=== PATIENT | female | born 1975 | race Caucasian/White ===

== ENCOUNTER 2024-06-17 12:43 | Emergency (ER) | payer MEDICAID, MEDICARE, SELFPAY ==
[2024-06-17 12:47] VITALS: BP 161/98; RESP 20; TEMP 36.8; BMI 27.6
--- NOTE | 2024-06-17 12:54 | XRR_ITS ---
PROCEDURE INFORMATION: Exam: XR Chest Exam date and time: 06/17/2024 1:05 PM Age: 49 years old Clinical indication: Pain; Angina pectoris; Additional info: Cp TECHNIQUE: Imaging protocol: Radiologic exam of the chest. Views: 1 view. COMPARISON: No relevant prior studies available. FINDINGS: Lungs: Unremarkable. No consolidation. Pleural spaces: Unremarkable. No pleural effusion. No pneumothorax. Heart/Mediastinum: Unremarkable. No cardiomegaly. Bones/joints: Unremarkable. XR/XR chest 1V portable [id number] IMPRESSION: No acute findings.
--- NOTE | 2024-06-17 12:54 | CT_ITS ---
WS: [id number] CT HEAD NONCONTRAST HISTORY: weakness TECHNIQUE: Contiguous axial imaging performed through the brain. Bone and soft tissue windows. Sagitt al and coronal reformats reviewed. All CT scans at [facility] use at least one of these dose optimization techniques: automated exposure control; mA and/or kV adjustment per patient size (includ es targeted exams where dose is matched to clinical indication); or iterative reconstruction. DLP: 1082.28 mGy.cm COMPARISON: None available. Cochlear implant resulting in significant artifact through the RIGHT brain. No acute intracranial hemorrhage, midline shift or mass effect. No significant atrophy or prior infarct. Ventricles: Normal size with no hydrocephalus. Paranasal sinuses: As visualized are clear. Mastoid air cells: Well pneumatized. Calvarium and scalp: Skull is intact with no soft tissue edema or swelling. Small amount of cerumen in the RIGHT external auditory canal. CT/CT head wo con* [id number] IMPRESSION: 1. No acute intracranial hemorrhage or edema. 2. Portions of the RIGHT brain are being obscured by artifact from the patient 's cochlear implant. 3. No hydrocephalus.
--- NOTE | 2024-06-17 12:58 | ECG_ITS ---
[facility] Test Date: 2024-06-17 Pat Name: salvatore carpio Department: Room: Gender: Female Associate Web Developer: : 1975 Requested By: Aleshia Flores Order Number: [id number] Gregorio MD: Nelsy Camejo M.D. Measurements Intervals [place] Rate: 65 P: 61 CT: 134 QRS: 10 QRSD: 77 T: 55 QT: 398 QTc: 414 Interpretive Statements SINUS RHYTHM NONSPECIFIC T-WAVE ABNORMALITY No previous ECG available for comparison Electronically Signed On 06-18-2024 01:06:40 CDT by Nelsy Camejo M.D. [email or web address]
--- NOTE | 2024-06-17 13:02 | ED_ITS ---
HPI - Neuro Symptoms/Deficit 2 General: Chief Complaint: Neuro Symptoms/Deficit Stated Complaint: stork like symptoms Time Seen by Provider: 06/17/24 12:50 Source: patient Mode of arrival: ambulatory Limitations: no limitations History of Present Illness: 49-year-old female states that for the l ast week she has been having some fatigue states she has had some dizziness along with headaches chest pain and cough. States she is concerned she may have had a stroke due to her weakness she denies any focal one-sided weakness. States she has had some drooling she states on the right side of her mouth but did not notice any facial droop denies any changes of vision states that her symptoms have improved currently she denies any chest pain today or headache but states she want to get checked out. Associated symptoms: Reports chest pain and headache(s); Deny nausea or vomiting Related Data Home Medications Medication Instructions Recorded Confirmed cider 1 tab PO DAILY 06/17/24 06/17/24 rrpkgjj-Ws-wwwprziptufdpzzm-tea 500 mg-100 mcg-300 mg-60 mg tab (Apple Cider Vinegar Plus) clopidogrel 75 mg tablet 75 mg PO DAILY 06/17/24 06/17/24 ranolazine 500 mg tablet,extended 500 mg PO Q12H 06/17/24 06/17/24 release,12 hr simvastatin 20 mg tablet 20 mg PO QPM 06/17/24 06/17/24 spironolactone 25 mg tablet 25 mg PO DAILY 06/17/24 06/17/24 Review of Systems 2 Const: Reports: fatigue; Denies: fever(s), chills, body aches or change in appetite Eyes: Denies: blurry vision or eye discomfort ENMT: Denies: throat pain or dental pain Card: Reports: chest pain Resp: Reports: non-productive cough; Denies: dyspnea GI: Denies: abdominal pain, nausea, vomiting or diarrhea : Denies: dysuria Musc: Denies: neck pain or back pain Skin/Breast: Denies: rash Neuro: Reports: headache(s) NIH stroke score 2 NIHSS: Level Of Consciousness - 1a: 0 Level Of Consciousness Questions - 1b: Both Correct Level Of Consciousness Commands - 1c: Both Correct Best Gaze - 2: Normal Visual Jewell - 3: No Visual Loss Facial Palsy - 4: N ormal Motor Arm Right - 5: No Drift Motor Arm Left - 5: No Drift Motor Leg Right - 6: No Drift Motor Leg Left - 6: No Drift Limb Ataxia - 7: A bsent Sensory - 8: Normal Best Language - 9: No Aphasia Dysarthia - 10: Normal Extinction And Inattention - 11: 0 Score: Total Score: 0 Physical Exam 2 Const: COMMON NORMALS: no acute distress, patient oriented x3 and healthy appearing HENMT: COMMON NORMALS: normocephalic and atraumatic HEAD & SCALP: n ormocephalic and atraumatic Eye: COMMON NORMALS: Equal, round and reactive pupils present and EOMs intact bilaterally PUPIL: Yes Equal, round and reactive pupils present Neck/C-Spine: COMMON NORMALS: full ROM and supple Chest: COMMONS NORMALS: normal inspection of the chest and normal palpation of entire chest wall Resp: COMMON NORMALS: normal respiratory effort, No retractions, No use of accessory muscles and clear to auscultation bilaterally AUSCULTATION: clear to auscultation bilaterally Cardio: COMMON NORMALS: regular rate, regular rhythm and No murmurs present (Cardio) RATE: regular rate RHYTHM: regular rhythm GI: COMMON NORMALS: Normal to inspection, nondistended, normoactive bowel sounds present, Soft to palpation, non-tender and no masses PALPATION: Yes Soft to palpation Extremity: COMMON NORMALS: normal to inspection and full ROM Neuro: COMMON NORMALS: patient oriented x3, moves all extremities and no focal motor deficits Psych: COMMON NORMALS: mental status grossly normal, Normal thought process present and cooperative THOUGHT PROCESS: Normal thought process present Skin: COMMON NORMALS: no rashes or lesions noted and no wounds GENERAL SKIN EXAM: no rashes or lesions noted Course 2 Vital Signs: Vital signs: Vital Signs Temperature 98.3 F 06/17/24 12:47 Pulse Rate 73 06/17/24 13:33 Respiratory Rate 14 06/17/24 13:33 Blood Pressure 139/85 06/17/24 13:33 Pulse Oximetry 96 06/17/24 13:33 Oxygen Delivery Me thod Room Air 06/17/24 13:33 MDM - Neuro Symptoms/Deficit Medical Decision Making Patient presents here with generalized weakness along chest pains been going on for a week her symptoms since resolved she been well-appearing here she has no signs of acute stroke blood work including troponin and head CT are normal she has no signs of ACS or pulmonary embolism she stable for discharge she is follow-up with PCP and return if worsening. Medical Records I reviewed the patient's medical records. Lab Data I reviewed the patient's lab results. 06/17/24 12:58 06/17/24 12:58 Radiology Impressions Chest X-Ray 06/17/24 12:54 IMPRESSION: No acute findings. Head CT 06/17/24 12:54 IMPRESSION: 1. No acute intracranial hemorrhage or edema. 2. Portions of the RIGHT brain are being obscured by artifact from the patient's cochlear implant. 3. No hydrocephalus. Laboratory Results WBC 9.16 10^3/uL (3.29-11.43) 06/17/24 12:58 RBC 5.47 10^6/uL (3.85-5.65) 06/17/24 12:58 Hgb 17.00 g/dL (11.27-16.99) H 06/17/24 12:58 Hct 50.5 % (36-47) H 06/17/24 12:58 MCV 92.3 fl (85-98) 06/17/24 12:58 MCH 31.1 pg (27-33) 06/17/24 12:58 MCHC 33.7 g/dL (30-55) 06/17/24 12:58 RDW 13.2 % (12.1-15.1) 06/17/24 12:58 Plt Count 204 10^3/cmm (157-399) 06/17/24 12:58 MPV 10.8 fL (7.4-10.4) H 06/17/24 12:58 Neut % (Auto) 48.4 % 06/17/24 12:58 Lymph % (Auto) 42.5 % 06/17/24 12:58 [place] % (Auto) 6.4 % 06/17/24 12:58 Eos % (Auto) 1.5 % 06/17/24 12:58 Baso % (Auto) 0.8 % 06/17/24 12:58 Neut # (Auto) 4.43 10^3/uL (1.8-7.7) 06/17/24 12:58 Lymph # (Auto) 3.9 10^3/uL (0.8-4.8) 06/17/24 12:58 [place] # (Auto) 0.6 10^3/uL (0.2-0.9) 06/17/24 12:58 Eos # (Auto) 0.1 10^3/uL (0.0-0.8) 06/17/24 12:58 Baso # (Auto) 0.1 10^3/uL (0.0-0.1) 06/17/24 12:58 Nucleated RBC % (auto) 0 % 06/17/24 12:58 Nucleated RBCs # 0.0 /100WBC 06/17/24 12:58 PT 12.30 SECONDS (12.1-14.9) 06/17/24 12:58 INR 0.89 (0.8-1.2) 06/17/24 12:58 Sodium 137 mmol/L (136-145) 06/17/24 12:58 Potassium 4.5 mmol/L (3.5-5.1) 06/17/24 12:58 Chloride 102 mmol/L (98-107) 06/17/24 12:58 Carbon Dioxide 24 mmol/L (22-29) 06/17/24 12:58 Anion Gap 15.5 (5-19) 06/17/24 12:58 BUN 8 mg/dL (6-20) 06/17/24 12:58 Creatinine 0.8 mg/dL (0.5-0.9) 06/17/24 12:58 GFR Calculation 75.9 mL/min (90-130) L 06/17/24 12:58 Glucose 129 mg/dL (65-115) H 06/17/24 12:58 POC Glucose 127 mg/dL (70-110) H 06/17/24 12:56 Calculated Osmolality 284 mOsm/kg (285-295) L 06/17/24 12:58 Calcium 9.2 mg/dL (8.5-10.5) 06/17/24 12:58 Total Bilirubin 0.3 mg/dL (0.15-1.2) 06/17/24 12:58 AST 15 U/L (0-32) 06/17/24 12:58 ALT 9 U/L (0-33) 06/17/24 12:58 Alkaline Phosphatase 90 U/L (35-105) 06/17/24 12:58 Troponin T Baseline < 6 ng/L (0-10) 06/17/24 12:58 Total Protein 7.3 g/dL (6.6-8.7) 06/17/24 12:58 Albumin 4.6 g/dL (3.5-5.2) 06/17/24 12:58 Globulin 2.7 g/dL (1.3-4.6) 06/17/24 12:58 Coronavirus (PCR) Negative (Negative) 06/17/24 13:04 Influenza A (PCR) Negative (Negative) 06/17/24 13:04 Influenza Type B (PCR) Negative (Negative) 06/17/24 13:04 RSV (PCR) Negative (Negative) 06/17/24 13:04 All radiology interpretation(s) finalized by discharge EKG Data EKG 1: I personally reviewed and interpreted this EKG as follows: EKG interpretation date: 06/17/24 EKG interpretation time: 12:58 Interpretation: nsr hr [address] elevation qrs 77 qtc 409 Discharge Plan Discharge Patient Disposition: Home Clinical Impression: Generalized weakness, Chest pain Condition: Stable Prescriptions: No Action clopidogrel 75 mg Tablet 75 mg PO DAILY spironolactone 25 mg Tablet 25 mg PO DAILY simvastatin 20 mg Tablet 20 mg PO QPM Apple Cider Vinegar Plus [phone] qu-jch-lk-mg Tablet 1 tab PO DAILY ranolazine 500 mg Tablet Extended Release 12 Hr 500 mg PO Q12H Discharge Orders: Discharge ED (Routine); Ordered 06/17/24 Ordered By: Aleshia Flores Discharge Diet: Advance as tolerated Discharge Activity: Resume usual activity Patient Instructions: Chest Pain (ED), Weakness (Generalized) Coding Level of Care Code ED Certified Respiratory Therapist for Imelda Wells
[2024-06-17 13:03] LABS: Glucose Point of Care 127 mg/dL (70-110)
[2024-06-17 13:20] LABS: Basophils # 0.1 10^3/uL (0.0-0.1); Basophils % 0.8 %; Eosinophils # 0.1 10^3/uL (0.0-0.8); Eosinophils % 1.5 %; Hematocrit 50.5 % (36-47); Lymphocytes # 3.9 10^3/uL (0.8-4.8); Lymphocytes % 42.5 %; Mean Corpuscular HGB Conc 33.7 g/dL (30-55); Mean Corpuscular Hemoglobin 31.1 pg (27-33); Mean Corpuscular Volume 92.3 fl (85-98); Mean Platelet Volume 10.8 fL (7.4-10.4); Monocytes # 0.6 10^3/uL (0.2-0.9); Monocytes % 6.4 %; Neutrophils # 4.43 10^3/uL (1.8-7.7); Neutrophils % 48.4 %; Nucleated Red Blood Cells % 0 %; Platelet Count 204 10^3/cmm (157-399); Red Blood Count 5.47 10^6/uL (3.85-5.65); Red Cell Distribution Width 13.2 % (12.1-15.1); White Blood Count 9.16 10^3/uL (3.29-11.43)
[2024-06-17 13:25] LABS: INR 0.89 (0.8-1.2)
[2024-06-17 13:29] LABS: Alanine Aminotransferase 9 U/L (0-33); Albumin Level 4.6 g/dL (3.5-5.2); Alkaline Phosphatase 90 U/L (35-105); Aspartate Amino Transferase 15 U/L (0-32); Blood Urea Nitrogen 8 mg/dL (6-20); Calcium 9.2 mg/dL (8.5-10.5); Carbon Dioxide 24 mmol/L (22-29); Chloride 102 mmol/L (98-107); Creatinine Clr Calc Pharmacy 79.3475; Globulin 2.7 g/dL (1.3-4.6); Glomerular Filtration Rate 75.9 mL/min (90-130); Glucose 129 mg/dL (65-115); Osmolality Calculated 284 mOsm/kg (285-295); Sodium 137 mmol/L (136-145); Total Bilirubin 0.3 mg/dL (0.15-1.2); Total Protein 7.3 g/dL (6.6-8.7); Troponin(5th) Baseline < 6 ng/L (0-10)
[2024-06-17 13:31] LABS: Anion Gap 15.5 (5-19); Potassium 4.5 mmol/L (3.5-5.1)
[2024-06-17 13:33] VITALS: BP 139/85; PULSE 73; RESP 14; O2SAT 96
[2024-06-17 13:48] LABS: Covid PCR NEGATIVE (Negative); Influenza A NEGATIVE (Negative); Influenza B NEGATIVE (Negative); Respiratory Syncytial Virus Ce NEGATIVE (Negative)
[2024-06-17 14:35] VITALS: BP 124/62; PULSE 60; RESP 16; O2SAT 96
== END 2024-06-17 14:37 | disposition home or self-care (01) ==
PROVIDERS: Emergency Provider Emergency Medicine
DX: R53.1 Weakness (principal); R07.9 Chest pain, unspecified; Z79.02 Long term (current) use of antithrombotics/antiplatelets; Z11.52 Encounter for screening for COVID-19
CPT/HCPCS: 0241U; 36416; 70450; 71045; 80053; 82962; 84484; 85025; 85610; 93005; 99285

== ENCOUNTER 2024-08-16 21:43 | Emergency (ER) | payer MEDICARE, SELFPAY ==
--- NOTE | 2024-08-16 21:49 | XRR_ITS ---
PROCEDURE INFORMATION: Exam: XR Chest Exam date and time: 08/16/2024 9:57 PM Age: 49 years old Clinical indication: Chest pressure; Patient HX: Chest pain TECHNIQUE: Imaging protocol: Radiologic exam of the chest. Views: 1 view. COMPARISON: CR XR chest 1V portable [id number] 06/17/2024 1:05 PM FINDINGS: Lungs: Unremarkable. No consolidation. Pleural spaces: Unremarkable. No pleural effusion. No pneumothorax. Heart/Mediastinum: Unremarkable. No cardiomegaly. Bones/joints: Unremarkable. XR/XR chest 1V portable [id number] IMPRESSION: No acute findings.
--- NOTE | 2024-08-16 21:49 | ECG_ITS ---
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 Measurements Intervals [place] Rate: 66 P: 55 LA: 147 QRS: 9 QRSD: 84 T: 66 QT: 336 QTc: 353 Interpretive Statements SINUS RHYTHM POSSIBLE LEFT ATRIAL ENLARGEMENT [-0.1mV P-WAVE IN V1/V2] NONSPECIFIC T-WAVE ABNORMALITY Compared to ECG 06/17/2024 12:58:07 No significant changes Electronically Signed On 08-17-2024 22:36:46 CORN HUSKER by Nelsy Camejo M.D. [email or web address]
--- NOTE | 2024-08-16 21:50 | ED_ITS ---
HPI - Chest Pain 2 General: Chief Complaint: Chest Pain Stated Complaint: Chest Pain Time Seen by Provider: 08/16/24 21:44 History of Present Illness: Patient presents to the ER with complaints of left-sided chest pain that radiates up into her neck. She describes as a pinching. It is reproducible pain. Is been going on all day long. Per the patient she has had what sounds like an NSTEMI with 1 stent placed in [place]. She is on Plavix and Ranexa currently. Patient denies any nausea vomiting shortness of breath diaphoresis. 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 Related Data Home Medications Medication Instructions Recorded Confirmed cider 1 tab PO DAILY 06/17/24 06/17/24 nrrmwyp-Pp-qdseuzercuisadxq-tea 500 mg-100 mcg-300 mg-60 mg tab (Apple Cider Vinegar Plus) clopidogrel 75 mg tablet 75 mg PO DAILY 06/17/24 06/17/24 ranolazine 500 mg tablet,extended 500 mg PO Q12H 06/17/24 06/17/24 release,12 hr simvastatin 20 mg tablet 20 mg PO QPM 06/17/24 06/17/24 spironolactone 25 mg tablet 25 mg PO DAILY 06/17/24 06/17/24 Review of Systems 2 General: Reports: 10 or more systems reviewed and unremarkable except in HPI and below Physical Exam 2 Const: COMMON NORMALS: no acute distress, average body habitus, patient oriented x3, no limitations, healthy appearing, alert and well nourished HENMT: COMMON NORMALS: normocephalic, atraumatic, hearing grossly normal bilaterally, external ears normal, Normal external nose present and moist oral mucous membranes HEAD & SCALP: normocephalic and atraumatic NOSE: Normal external nose present EXTERNAL EAR: Yes external ears normal Neck/C-Spine: COMMON NORMALS: full ROM, no lymphadenopathy, supple, no meningeal signs, no JVD and Thyroid normal THYROID: Thyroid normal Chest: COMMONS NORMALS: normal inspection of the chest and normal palpation of entire chest wall Resp: COMMON NORMALS: normal respiratory effort, No retractions, No use of accessory muscles and clear to auscultation bilaterally AUSCULTATION: clear to auscultation bilaterally Cardio: COMMON NORMALS: no JVD, regular rate, regular rhythm, S1 normal heart sound present, S2 normal heart sound present, No gallops present (Cardio), No clicks present (Cardio), No murmurs present (Cardio) and No rub (Cardio) R ATE: regular rate RHYTHM: regular rhythm HEART SOUNDS: S1 normal heart sound present and S2 normal heart sound present GI: COMMON NORMALS: Normal to inspection, nondistended, normoactive bowel sounds present, Soft to palpation, non-tender, No hepatosplenomegaly present and no masses PALPATION: Yes Soft to palpation and Yes No hepatosplenomegaly present Neuro: COMMON NORMALS: patient oriented x3 SENSORIUM/ORIENTATION: Yes alert MENINGEAL SIGNS: Yes no meningeal signs Course 2 Vital Signs: Vital signs: Vital Signs Temperature 98 F 08/16/24 21:57 Pulse Rate 72 08/17/24 00:41 Respiratory Rate 18 08/16/24 23:49 Blood Pressure 136/78 08/17/24 00:41 Pulse Oximetry 99 08/17/24 00:41 Oxygen Delivery Me thod Room Air 08/16/24 23:49 MDM - Chest Pain Medical Decision Making Patient present with chest pain was worked up last chest pain fashion with serial EKGs, serial enzymes, blood work, chest x-ray, all of which essentially is benign. Patient be discharged home to follow-up with her PCP. Lab Data 08/16/24 21:30 08/16/24 21:30 Radiology Impressions Chest X-Ray 08/16/24 21:49 IMPRESSION: No acute findings. Laboratory Results WBC 9.84 10^3/uL (3.29-11.43) 08/16/24 21:30 RBC 5.49 10^6/uL (3.85-5.65) 08/16/24 21:30 Hgb 16.80 g/dL (11.27-16.99) 08/16/24 21:30 Hct 49.6 % (36-47) H 08/16/24 21:30 MCV 90.3 fl (85-98) 08/16/24 21:30 MCH 30.6 pg (27-33) 08/16/24 21:30 MCHC 33.9 g/dL (30-55) 08/16/24 21:30 RDW 12.5 % (12.1-15.1) 08/16/24 21:30 Plt Count 223 10^3/cmm (157-399) 08/16/24 21: MPV 11.6 fL (7.4-10.4) H 08/16/24 21: Neut % (Auto) 47.2 % 08/16/24 21: Lymph % (Auto) 43.4 % 08/16/24 21:30 [place] % (Auto) 7.1 % 08/16/24 21: Eos % (Auto) 1.5 % 08/16/24 21: Baso % (Auto) 0.6 % 08/16/24 21:30 Neut # (Auto) 4.64 10^3/uL (1.8-7.7) 08/16/24: Lymph # (Auto) 4.3 10^3/uL (0.8-4.8) 08/16/24 21: [place] # (Auto) 0.7 10^3/uL (0.2-0.9) 08/16/24 21: Eos # (Auto) 0.2 10^3/uL (0.0-0.8) 08/16/24 21: Baso # (Auto) 0.1 10^3/uL (0.0-0.1) 08/16/24: Nucleated RBC % (auto) 0 % 08/16/24: Nucleated RBCs # 0.0 /100WBC 08/16/24 21: PT 12.30 SECONDS (12.1-14.9) 08/16/24 21: INR 0.89 (0.8-1.2) 08/16/24 21:30 Sodium 143 mmol/L (136-145) 08/16/24 21:30 Potassium 3.6 mmol/L (3.5-5.1) 08/16/24 21: Chloride 104 mmol/L (98-107) 08/16/24 21: Carbon Dioxide 27 mmol/L (22-29) 08/16/24 21:30 Anion Gap 15.6 (5-19) 08/16/24 21:30 BUN 7 mg/dL (6-20) 08/16/24 21:30 Creatinine 0.8 mg/dL (0.5-0.9) 08/16/24 21:30 GFR Calculation 75.9 mL/min (90-130) L 08/16/24 21:30 Glucose 112 mg/dL (65-115) 08/16/24 21:30 Calculated Osmolality 295 mOsm/kg (285-295) 08/16/24 21:30 Calcium 9.7 mg/dL (8.5-10.5) 08/16/24 21:30 Total Bilirubin 0.3 mg/dL (0.15-1.2) 08/16/24 21:30 AST 18 U/L (0-32) 08/16/24 21:30 ALT 13 U/L (0-33) 08/16/24 21:30 Alkaline Phosphatase 94 U/L (35-105) 08/16/24 21:30 Troponin T Baseline < 6 ng/L (0-10) 08/16/24 21:30 Troponin T 120 Minute 6.00 ng/L (0-10) 08/16/24 23:35 Delta Troponin T 0.72283 ABS# (0-10) 08/16/24 23:35 Total Protein 7.4 g/dL (6.6-8.7) 08/16/24 21:30 Albumin 4.6 g/dL (3.5-5.2) 08/16/24 21:30 Globulin 2.8 g/dL (1.3-4.6) 08/16/24 21:30 All radiology interpretation(s) finalized by discharge Discharge Plan Discharge Patient Disposition: Home Clinical Impression: Atypical chest pain Condition: Stable Prescriptions: No Action clopidogrel 75 mg Tablet 75 mg PO DAILY spironolactone 25 mg Tablet 25 mg PO DAILY simvastatin 20 mg Tablet 20 mg PO QPM Apple Cider Vinegar Plus [phone] ed-wiw-qc-mg Tablet 1 tab PO DAILY ranolazine 500 mg Tablet Extended Release 12 Hr 500 mg PO Q12H Discharge Orders: Discharge ED (Routine); Ordered 08/17/24 Ordered By: Aayush Taylor Patient Instructions: Noncardiac Chest Pain (ED) Activity Restrictions/Additional Instructions: [facility]. Please realize that you were seen in the emergency department and that we are providing you with an emergency medical screening exam and this may not be a complete and all exclusive of all testing and/or medical workup we may need to determine your element or severity of your illness. It is very important that you follow-up as instructed with your primary care provider or specialist for the additional evaluation and to discuss your medical treatment plan. You may return to the emergency department should you have concerns or if your condition changes or worsens in any way. Coding Level of Care Code ED Health Care Facility Administrator for Imelda Wells
[2024-08-16 21:57] VITALS: BP 140/79; PULSE 67; RESP 18; TEMP 36.6; O2SAT 94; BMI 31.8
[2024-08-16 22:13] LABS: Basophils # 0.1 10^3/uL (0.0-0.1); Basophils % 0.6 %; Eosinophils # 0.2 10^3/uL (0.0-0.8); Eosinophils % 1.5 %; Hematocrit 49.6 % (36-47); Lymphocytes # 4.3 10^3/uL (0.8-4.8); Lymphocytes % 43.4 %; Mean Corpuscular HGB Conc 33.9 g/dL (30-55); Mean Corpuscular Hemoglobin 30.6 pg (27-33); Mean Corpuscular Volume 90.3 fl (85-98); Mean Platelet Volume 11.6 fL (7.4-10.4); Monocytes # 0.7 10^3/uL (0.2-0.9); Monocytes % 7.1 %; Neutrophils # 4.64 10^3/uL (1.8-7.7); Neutrophils % 47.2 %; Nucleated Red Blood Cells % 0 %; Platelet Count 223 10^3/cmm (157-399); Red Blood Count 5.49 10^6/uL (3.85-5.65); Red Cell Distribution Width 12.5 % (12.1-15.1); White Blood Count 9.84 10^3/uL (3.29-11.43)
[2024-08-16 22:18] LABS: INR 0.89 (0.8-1.2)
[2024-08-16 22:23] LABS: Troponin(5th) Baseline < 6 ng/L (0-10)
[2024-08-16 22:26] LABS: Alanine Aminotransferase 13 U/L (0-33); Albumin Level 4.6 g/dL (3.5-5.2); Alkaline Phosphatase 94 U/L (35-105); Anion Gap 15.6 (5-19); Aspartate Amino Transferase 18 U/L (0-32); Blood Urea Nitrogen 7 mg/dL (6-20); Calcium 9.7 mg/dL (8.5-10.5); Carbon Dioxide 27 mmol/L (22-29); Chloride 104 mmol/L (98-107); Creatinine Clr Calc Pharmacy 85.1312; Globulin 2.8 g/dL (1.3-4.6); Glomerular Filtration Rate 75.9 mL/min (90-130); Glucose 112 mg/dL (65-115); Osmolality Calculated 295 mOsm/kg (285-295); Potassium 3.6 mmol/L (3.5-5.1); Sodium 143 mmol/L (136-145); Total Bilirubin 0.3 mg/dL (0.15-1.2); Total Protein 7.4 g/dL (6.6-8.7)
[2024-08-16 22:29] VITALS: BP 163/87; PULSE 65; RESP 17; O2SAT 97
[2024-08-16 23:49] VITALS: BP 145/79; PULSE 60; RESP 18; O2SAT 94
--- NOTE | 2024-08-16 23:49 | ECG_ITS ---
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 Measurements Intervals [place] Rate: 62 P: 58 AL: 144 QRS: 3 QRSD: 72 T: 59 QT: 340 QTc: 347 Interpretive Statements SINUS RHYTHM NONSPECIFIC T-WAVE ABNORMALITY Compared to ECG 08/16/2024 21:50:11 No significant changes Electronically Signed On 08-17-2024 22:43:04 TEACHER DRAMATICS by Nelsy Camejo M.D. [id number]
[2024-08-17 00:03] LABS: Troponin 5 2HR Delta 0.00001 ABS# (0-10)
[2024-08-17 00:41] VITALS: BP 136/78; PULSE 72; O2SAT 99
== END 2024-08-17 00:42 | disposition home or self-care (01) ==
PROVIDERS: Emergency Provider Emergency Medicine
DX: R07.89 Other chest pain (principal); Z79.02 Long term (current) use of antithrombotics/antiplatelets
CPT/HCPCS: 36415; 71045; 80053; 84484; 85025; 85610; 93005; 99285

== ENCOUNTER 2024-10-28 20:11 | Emergency (ER) | payer MEDICARE, MEDICAID, SELFPAY ==
[2024-10-28 20:13] VITALS: BP 128/78; PULSE 97; RESP 20; TEMP 37.6; O2SAT 94; BMI 28.3
--- NOTE | 2024-10-28 20:13 | XRR_ITS ---
PROCEDURE INFORMATION: Exam: XR Chest Exam date and time: 10/28/2024 8:52 PM Age: 49 years old Clinical indication: Chest wall pain; Additional info: Cp TECHNIQUE: Imaging protocol: Radiologic exam of the chest. Views: 1 view. COMPARISON: CR XR chest 1V portable [id number] 08/16/2024 9:57 PM FINDINGS: Lungs: Unremarkable. No consolidation. Pleural spaces: Unremarkable. No pleural effusion. No pneumothorax. Heart/Mediastinum: Unremarkable. No cardiomegaly. Bones/joints: No acute bony abnormalities detected. XR/XR chest 1V portable [id number] IMPRESSION: Negative chest exam.
--- NOTE | 2024-10-28 20:25 | ECG_ITS ---
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1975 Requested By: Aleshia Flores Order Number: [id number] Reading MD: LEXIS SANCHEZ Measurements Intervals [place] Rate: 102 P: 35 MA: 104 QRS: 8 QRSD: 81 T: -4 QT: 372 QTc: 485 Interpretive Statements SINUS TACHYCARDIA WITH SHORT MA INTERVAL VOLTAGE CRITERIA FOR LVH [MEETS CRITERIA IN ONE OF: R(aVL), S(V1), R(V5), R(V5/V6)+S(V1)] NONSPECIFIC T-WAVE ABNORMALITY Compared to ECG 08/17/2024 00:13:56 Short MA interval now present Left ventricular hypertrophy now present Sinus rhythm no longer present T-wave abnormality still present Electronically Signed On 10-28-2024 23:30:37 PHONE CIRCUIT OPERATOR by LEXIS SANCHEZ [email or web address]
[2024-10-28 21:09] LABS: Influenza A POSITIVE (Negative); Influenza B NEGATIVE (Negative); Respiratory Syncytial Virus Ce NEGATIVE (Negative); SARS-CoV-2 PCR NEGATIVE (Negative)
[2024-10-28 21:23] LABS: Alanine Aminotransferase 14 U/L (0-33); Albumin Level 4.2 g/dL (3.5-5.2); Alkaline Phosphatase 78 U/L (35-105); Anion Gap 19.3 (5-19); Aspartate Amino Transferase 22 U/L (0-32); Blood Urea Nitrogen 12 mg/dL (6-20); Calcium 8.8 mg/dL (8.5-10.5); Carbon Dioxide 24 mmol/L (22-29); Chloride 96 mmol/L (98-107); Creatinine Clr Calc Pharmacy 71.3882; Globulin 3.3 g/dL (1.3-4.6); Glomerular Filtration Rate 66.3 mL/min (90-130); Glucose 163 mg/dL (65-115); Lipase 75 U/L (13-60); Osmolality Calculated 285 mOsm/kg (285-295); Potassium 3.3 mmol/L (3.5-5.1); Sodium 136 mmol/L (136-145); Total Bilirubin 0.4 mg/dL (0.15-1.2); Total Protein 7.5 g/dL (6.6-8.7)
[2024-10-28 21:28] LABS: Basophils # 0.1 10^3/uL (0.0-0.1); Basophils % 0.8 %; Eosinophils % 0.3 %; Hematocrit 47.8 % (36-47); Lymphocytes # 1.9 10^3/uL (0.8-4.8); Lymphocytes % 24.7 %; Mean Corpuscular HGB Conc 34.3 g/dL (30-55); Mean Corpuscular Hemoglobin 30.1 pg (27-33); Mean Corpuscular Volume 87.7 fl (85-98); Mean Platelet Volume 11.8 fL (7.4-10.4); Monocytes # 0.9 10^3/uL (0.2-0.9); Neutrophils # 4.84 10^3/uL (1.8-7.7); Neutrophils % 62.4 %; Nucleated Red Blood Cells % 0 %; Platelet Count 169 10^3/cmm (157-399); Red Blood Count 5.45 10^6/uL (3.85-5.65); Troponin(5th) Baseline 18 ng/L (0-10); White Blood Count 7.74 10^3/uL (3.29-11.43)
[2024-10-28 21:51] VITALS: BP 140/76; PULSE 88; O2SAT 93
[2024-10-28 22:00] VITALS: BP 135/83; PULSE 83; O2SAT 95
--- NOTE | 2024-10-28 22:04 | W.ED.URI ---
HPI - URI/Sore Throat General: Chief Complaint: Upper Respiratory Infection Stated Complaint: cought chest hurts when breathing Time Seen by Provider: 10/28/24 21:08 History of Present Illness: This is a 49-year-old deaf lady who presents emergency room with upper respiratory complaints. She has been sick for about 4 days. She has had a cough. Sore throat. Congestion. Some difficulty breathing when lying down. No heart disease. She gets about 99 7 on presentation Related Data Home Medications ?Medication ?Instructions ?Recorded ?Confirmed cider 1 tab PO DAILY 06/17/24 06/17/24 ucbjutp-Xa-ffsjtwrgvwgqlxnq-tea 500 mg-100 mcg-300 mg-60 mg tab (Apple Cider Vinegar Plus) clopidogrel 75 mg tablet 75 mg PO DAILY 06/17/24 06/17/24 ranolazine 500 mg tablet,extended 500 mg PO Q12H 06/17/24 06/17/24 release,12 hr simvastatin 20 mg tablet 20 mg PO QPM 06/17/24 06/17/24 spironolactone 25 mg tablet 25 mg PO DAILY 06/17/24 06/17/24 Previous Rx's ?Medication ?Instructions ?Recorded dexamethasone 6 mg tablet 6 mg PO DAILY 5 days #5 tabs 10/28/24 diclofenac sodium 50 mg 50 mg PO BID PRN pain #14 tabs 10/28/24 tablet,delayed release Allergies Allergy/AdvReac Type Severity Reaction Status Date / Time codeine Allergy Unknown Verified 10/28/24 20:22 Review of Systems Narrative: Constitutional symptoms: Negative except as documented in HPI. Skin symptoms: Negative except as documented in HPI. Eye symptoms: Negative except as documented in HPI. ENMT symptoms: Negative except as documented in HPI. Respiratory symptoms: Negative except as documented in HPI. Cardiovascular symptoms: Negative except as documented in HPI. Gastrointestinal symptoms: Negative except as documented in HPI. Genitourinary symptoms: Negative except as documented in HPI. Musculoskeletal symptoms: Negative except as documented in HPI. Neurologic symptoms: Negative except as documented in HPI. Psychiatric symptoms: Negative except as documented in HPI. Endocrine symptoms: Negative except as documented in HPI. Physical Exam Narrative: EXAM NARRATIVE: General: Alert, no acute distress. Skin: Warm, dry. Head: Normocephalic, atraumatic. Neck: Supple, trachea midline. Eye: Extraocular movements are intact. Ears, nose, mouth and throat: mucosa moist. Cardiovascular: Regular, Normal peripheral perfusion. Respiratory: Lungs are clear to auscultation, respirations are non-labored, breath sounds are equal, Symmetrical chest wall expansion. Gastrointestinal: Soft, Nontender, Non distended Musculoskeletal: Normal ROM, no deformity. Neurological: Alert and oriented, No focal neurological deficit observed. Psychiatric: Cooperative, appropriate mood & affect. Course Vital Signs: Vital signs: Vital Signs Temperature 99.7 F H 10/28/24 20:13 Pulse Rate 83 10/28/24 22:00 Respiratory Rate 20 H 10/28/24 20:13 Blood Pressure 135/83 10/28/24 22:00 Pulse Oximetry 95 10/28/24 22:00 Oxygen Delivery Me thod Room Air 10/28/24 22:00 MDM - URI/Sore Throat Medical Decision Making Differential diagnosis for patient with shortness of breath includes but is not limited to and based on the above HPI, review of systems and physical exam: Pneumonia. Bronchitis. Asthma or COPD with acute exacerbation. Acute coronary syndrome / MT. Pulmonary embolism. Anxiety. Congestive heart failure. Viral infections including influenza and Covid-19. Atrial fibrillation. Anxiety. Pleural effusion. Pneumothorax. Orders placed to evaluate differential diagnosis based on the above differential, HPI and physical exam Chest x-ray: No acute process. No infiltrate. No pneumothorax. This was reviewed and interpreted by myself the emergency room physician. I also reviewed the radiology report. Lab Review: Laboratory results were reviewed and interpreted by myself the emergency room physician. Patient has influenza A. Otherwise labs are unremarkable. No leukocytosis. No anemia. No renal failure I reviewed the patient's medical record. Reexamination: Patient remained stable. No increased work of breathing. No altered mental status. No focal motor deficits. Assessment and plan: Influenza A ?IM Decadron in the emergency room. - Discharged home - Discussed plan with patient. Answered any questions. - Evaluation and treatment of this problem were appropriate in the emergency setting. Lab Data 10/28/24 20:44 10/28/24 20:44 Radiology Impressions Chest X-Ray 10/28/24 20:13 IMPRESSION: Negative chest exam. Laboratory Results WBC 7.74 10^3/uL (3.29-11.43) 10/28/24 20:44 RBC 5.45 10^6/uL (3.85-5.65) 10/28/24 20:44 Hgb 16.40 g/dL (11.27-16.99) 10/28/24 20:44 Hct 47.8 % (36-47) H 10/28/24 20:44 MCV 87.7 fl (85-98) 10/28/24 20:44 MCH 30.1 pg (27-33) 10/28/24 20:44 MCHC 34.3 g/dL (30-55) 10/28/24 20:44 RDW 13.0 % (12.1-15.1) 10/28/24 20:44 Plt Count 169 10^3/cmm (157-399) 10/28/24:44 MPV 11.8 fL (7.4-10.4) H 10/28/24 20:44 Neut % (Auto) 62.4 % 10/28/24 20:44 Lymph % (Auto) 24.7 % 10/28/24:44 Bent % (Auto) 11.0 % 10/28/24 20:44 Eos % (Auto) 0.3 % 10/28/24 20:44 Baso % (Auto) 0.8 % 10/28/24 20:44 Neut # (Auto) 4.84 10^3/uL (1.8-7.7) 10/28/24 20:44 Lymph # (Auto) 1.9 10^3/uL (0.8-4.8) 10/28/24 20:44 Bent # (Auto) 0.9 10^3/uL (0.2-0.9) 10/28/24 20:44 Eos # (Auto) 0.0 10^3/uL (0.0-0.8) 10/28/24 20:44 Baso # (Auto) 0.1 10^3/uL (0.0-0.1) 10/28/24:44 Nucleated RBC % (auto) 0 % 10/28/24 20:44 Nucleated RBCs # 0.0 /100WBC 10/28/24 20:44 Sodium 136 mmol/L (136-145) 10/28/24 20:44 Potassium 3.3 mmol/L (3.5-5.1) L 10/28/24 20:44 Chloride 96 mmol/L (98-107) L 10/28/24 20:44 Carbon Dioxide 24 mmol/L (22-29) 10/28/24 20:44 Anion Gap 19.3 (5-19) H 10/28/24 20:44 BUN 12 mg/dL (6-20) 10/28/24 20:44 Creatinine 0.9 mg/dL (0.5-0.9) 10/28/24 20:44 GFR Calculation 66.3 mL/min (90-130) L 10/28/24 20:44 Glucose 163 mg/dL (65-115) H 10/28/24 20:44 Calculated Osmolality 285 mOsm/kg (285-295) 10/28/24 20:44 Calcium 8.8 mg/dL (8.5-10.5) 10/28/24 20:44 Total Bilirubin 0.4 mg/dL (0.15-1.2) 10/28/24 20:44 AST 22 U/L (0-32) 10/28/24:44 ALT 14 U/L (0-33) 10/28/24 20:44 Alkaline Phosphatase 78 U/L (35-105) 10/28/24 20:44 Troponin T Baseline 18 ng/L (0-10) H 10/28/24 20:44 Total Protein 7.5 g/dL (6.6-8.7) 10/28/24 20:44 Albumin 4.2 g/dL (3.5-5.2) 10/28/24 20:44 Globulin 3.3 g/dL (1.3-4.6) 10/28/24 20:44 Lipase 75 U/L (13-60) H 10/28/24 20:44 Influenza A (PCR) Positive (Negative) 10/28/24: Influenza Type B (PCR) Negative (Negative) 10/28/24: RSV (PCR) Negative (Negative) 10/28/24: SARS-CoV-2 (PCR) Negative (Negative) 10/28/24: All radiology interpretation(s) finalized by discharge Discharge Plan Discharge Patient Disposition: Home Clinical Impression: Influenza A Condition: Stable Prescriptions: New dexamethasone 6 mg tablet 6 mg PO DAILY 5 Days Qty: 5 0RF diclofenac sodium 50 mg tablet,delayed release (DR/EC) 50 mg PO BID PRN (Reason: pain) Qty: 14 0RF No Action clopidogrel 75 mg Tablet 75 mg PO DAILY spironolactone 25 mg Tablet 25 mg PO DAILY simvastatin 20 mg Tablet 20 mg PO QPM Iwona Cider Oralegar Plus [phone] io-qec-ea-mg Tablet 1 tab PO DAILY ranolazine 500 mg Tablet Extended Release 12 Hr 500 mg PO Q12H Discharge Orders: Discharge ED (Routine); Ordered 10/28/24 Ordered By: Jacki Fuller Discharge Diet: Usual diet Discharge Activity: Increase activity as tolerated Patient Instructions: Influenza (ED), Opioid Safety, Pain Management Activity Restrictions/Additional Instructions: Thank you for choosing [facility] for your healthcare needs today. Please realize this is an emergency room and that we are providing you with a medical screening exam and this may not be complete and all inclusive of all the testing and or work up that you may need to determine your ailment or severity of your illness. You have been screened and evaluated and felt safe for discharge. Health conditions do change or evolve sometimes and as such it is important that you follow up with your Primary Doctor to be re checked, 3-5 days is a general good time frame for follow up. You are always welcome to return to the ED for re assessment if your symptoms are worsening or you have new concerns Print Language: Yi Coding Level of Care Code ED Hired Worker for Imelda Wells
[2024-10-28] MEDS: dexamethasone 10 mg/mL INJ IM (22:20)
[2024-10-28 22:25] VITALS: BP 134/83; PULSE 86; O2SAT 93
== END 2024-10-28 22:25 | disposition home or self-care (01) ==
PROVIDERS: Emergency Medicine; Emergency Provider Emergency Medicine
DX: J10.1 Influenza due to other identified influenza virus with other respiratory manifestations (principal); Z11.52 Encounter for screening for COVID-19; Z79.02 Long term (current) use of antithrombotics/antiplatelets
CPT/HCPCS: 71045; 80053; 83690; 84484; 85025; 87637; 93005; 96372; 99285; J1100

== ENCOUNTER 2024-11-10 12:51 | Emergency (ER) | payer MEDICARE, MEDICAID, SELFPAY ==
[2024-11-10] VITALS (47 sets, daily range): BP systolic 138–186; BP diastolic 84–141; PULSE 74–108; RESP 10–35; TEMP 36.7; O2SAT 93–99
--- NOTE | 2024-11-10 14:47 | XRR_ITS ---
PROCEDURE INFORMATION: Exam: XR Chest Exam date and time: 11/10/2024 2:51 PM Age: 49 years old Clinical indication: Cough and dyspnea; Prior surgery; Surgery date: 6+ months; Surgery type: Stent; Additional info: Dyspnea/cough TECHNIQUE: Imaging protocol: Radiologic exam of the chest. Views: 1 view. COMPARISON: CR (CHEST, ) 10/28/2024 8:52 PM FINDINGS: Lungs: Unremarkable. No consolidation. Pleural spaces: Unremarkable. No pleural effusion. No pneumothorax. Heart/Mediastinum: Unremarkable. No cardiomegaly. Bones/joints: Unremarkable. XR/XR chest 1V portable [id number] IMPRESSION: No acute findings.
--- NOTE | 2024-11-10 14:48 | ECG_ITS ---
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: : 1975 Requested By: Hair Rouse Order Number: [id number] Reading MD: LEXIS SANCHEZ Measurements Intervals [place] Rate: 78 P: 61 HI: 129 QRS: 28 QRSD: 77 T: 203 QT: 383 QTc: 437 Interpretive Statements SINUS RHYTHM ST DEVIATION AND MODERATE T-WAVE ABNORMALITY, CONSIDER LATERAL ISCHEMIA [-0.1+ mV T-WAVE IN I/aVL/V5/V6] ST DEVIATION AND MODERATE T-WAVE ABNORMALITY, CONSIDER INFERIOR ISCHEMIA [-0.1+ mV T-WAVE IN II/aVF] Compared to ECG 10/28/2024 20:25:22 Possible ischemia now present Sinus tachycardia no longer present Short HI interval no longer present Left ventricular hypertrophy no longer present T-wave abnormality still present Electronically Signed On 11-10-2024 22:13:21 CDT by LEXIS SANCHEZ [email or web address]
--- NOTE | 2024-11-10 14:49 | W.ED.GENADLT ---
Documented by User: Hair Estevez DO 11/11/24 06:06 HPI - General Adult General: Chief complaint: Headache Stated complaint: hp,headache,weak, backpain Time Seen by Provider: 11/10/24 14:46 History of Present Illness: 49-year-old female presents to the emergency room with headache neck pain nausea elevated blood pressure. She has a known history of coronary artery disease has had previous angiography with stenting. She has been on multiple medications but she stopped all of her medicines about 5 months ago including ranolazine clopidogrel simvastatin spironolactone. She not previously been seen here. She was able to tell me about her coronary artery disease but does not have any known history that she can relate of kidney disease or diabetes she does smoke regularly. Associated symptoms: Deny chest pain, dyspnea or rash Related Data Home Medications ?Medication ?Instructions ?Recorded ?Confirmed cider 1 tab PO DAILY 06/17/24 11/10/24 rdtlrro-Qm-uctjhoiwniqmssbn-tea 500 mg-100 mcg-300 mg-60 mg tab (Apple Cider Vinegar Plus) clopidogrel 75 mg tablet 75 mg PO DAILY 06/17/24 11/10/24 ranolazine 500 mg tablet,extended 500 mg PO Q12H 06/17/24 11/10/24 release,12 hr simvastatin 20 mg tablet 20 mg PO QPM 06/17/24 11/10/24 spironolactone 25 mg tablet 25 mg PO DAILY 06/17/24 11/10/24 Previous Rx's ?Medication ?Instructions ?Recorded clopidogrel 75 mg tablet (Plavix) 75 mg PO DAILY #30 tabs 11/10/24 ranolazine 500 mg tablet,extended 500 mg PO BID #60 tabs 11/10/24 release,12 hr simvastatin 20 mg tablet 20 mg PO QPM #30 tabs 11/10/24 spironolactone 25 mg tablet 25 mg PO QAM #30 tabs 11/10/24 Allergies Allergy/AdvReac Type Severity Reaction Status Date / Time codeine Allergy Unknown Verified 11/10/24 13:42 Review of Systems Const: Denies: fever(s) or chills Card: Denies: chest pain Resp: Denies: dyspnea GI: Denies: abdominal pain : Denies: dysuria, urinary frequency or urinary urgency Musc: Denies: neck pain or back pain Skin/Breast: Denies: rash PFSH ED PFSH: Medical History Coronary artery disease Surgical History History of coronary angioplasty with insertion of stent Physical Exam Const: GENERAL APPEARANCE: cooperative ORIENTATION/CONSCIOUSNESS: Yes awake, Yes oriented to person, Yes oriented to place and Yes oriented to time HENMT: COMMON NORMALS: normocephalic and atraumatic HEAD & SCALP: normocephalic and atraumatic Resp: COMMON NORMALS: normal respiratory effort, No retractions, No use of accessory muscles and clear to auscultation bilaterally AUSCULTATION: clear to auscultation bilaterally Cardio: COMMON NORMALS: regular rate, regular rhythm and No murmurs present (Cardio) RATE: regular rate RHYTHM: regular rhythm GI: COMMON NORMALS: Soft to palpation and No hepatosplenomegaly present AUSCULTATION: Yes normoactive bowel sounds PALPATION: Yes Soft to palpation, No Tenderness to palpation present (GI), No Guarding due to palpation present (GI) and Yes No hepatosplenomegaly present Extremity: COMMON NORMALS: normal to inspection, capillary refill normal, no clubbing, cyanosis or edema, no calf tenderness and no pedal edema Neuro: SENSORIUM/ORIENTATION: Yes oriented to person, Yes oriented to place and Yes oriented to time Skin: COMMON NORMALS: no rashes or lesions noted GENERAL SKIN EXAM: no rashes or lesions noted Course Vital Signs: Vital signs: Vital Signs Temperature 98.1 F 11/10/24 13:37 Pulse Rate 81 11/10/24 18:57 Respiratory Rate 15 11/10/24 18:50 Blood Pressure 150/89 11/10/24 18:57 Pulse Oximetry 97 11/10/24 18:57 Oxygen Delivery Me thod Room Air 11/10/24 18:25 MDM - General Adult Medical Decision Making Care signed out to Dr. Fuller at change of shift. See final notes for diagnosis and disposition. Patient care was transitioned me at shift change awaiting final troponin. This is negative. She basically has no positive findings in her lab workup. No leukocytosis. No anemia. No renal failure. Suggest she follows with her primary and start back on her medications as previously instructed. Assessment and plan: Noncardiac chest pain Headache Malaise Medical noncompliance ?I did provide her with prescriptions for her medications and instructions to take them as instructed and to follow-up with a primary provider as soon as possible. - Discharged home - Discussed findings and plan with patient. Answered any questions. - All laboratory values were reviewed and interpreted personally by myself, the ER physician - All imaging was reviewed and interpreted personally by myself, the ER physician. - Evaluation and treatment of this problem were appropriate in the emergency setting Lab Data 11/10/24 15:15 11/10/24 15:15 Radiology Impressions Chest X-Ray 11/10/24 14:47 IMPRESSION: No acute findings. Laboratory Results WBC 9.79 10^3/uL (3.29-11.43) 11/10/24 15:15 RBC 5.22 10^6/uL (3.85-5.65) 11/10/24 15:15 Hgb 15.80 g/dL (11.27-16.99) 11/10/24 15:15 Hct 47.9 % (36-47) H 11/10/24 15:15 MCV 91.8 fl (85-98) 11/10/24 15:15 MCH 30.3 pg (27-33) 11/10/24 15:15 MCHC 33.0 g/dL (30-55) 11/10/24 15:15 RDW 13.1 % (12.1-15.1) 11/10/24 15:15 Plt Count 217 10^3/cmm (157-399) 11/10/24 15:15 MPV 10.7 fL (7.4-10.4) H 11/10/24 15:15 Neut % (Auto) 60.7 % 11/10/24 15:15 Lymph % (Auto) 30.1 % 11/10/24 15:15 Winkler % (Auto) 7.3 % 11/10/24 15:15 Eos % (Auto) 0.9 % 11/10/24 15:15 Baso % (Auto) 0.8 % 11/10/24 15:15 Neut # (Auto) 5.94 10^3/uL (1.8-7.7) 11/10/24 15:15 Lymph # (Auto) 3.0 10^3/uL (0.8-4.8) 11/10/24 15:15 Winkler # (Auto) 0.7 10^3/uL (0.2-0.9) 11/10/24 15:15 Eos # (Auto) 0.1 10^3/uL (0.0-0.8) 11/10/24 15:15 Baso # (Auto) 0.1 10^3/uL (0.0-0.1) 11/10/24 15:15 Nucleated RBC % (auto) 0 % 11/10/24 15:15 Nucleated RBCs # 0.0 /100WBC 11/10/24 15:15 Sodium 136 mmol/L (136-145) 11/10/24 15:15 Potassium 3.9 mmol/L (3.5-5.1) 11/10/24 15:15 Chloride 100 mmol/L (98-107) 11/10/24 15:15 Carbon Dioxide 25 mmol/L (22-29) 11/10/24 15:15 Anion Gap 14.9 (5-19) 11/10/24 15:15 BUN 8 mg/dL (6-20) 11/10/24 15:15 Creatinine 0.7 mg/dL (0.5-0.9) 11/10/24 15:15 GFR Calculation 88.6 mL/min (90-130) L 11/10/24 15:15 Glucose 197 mg/dL (65-115) H 11/10/24 15:15 Calculated Osmolality 286 mOsm/kg (285-295) 11/10/24 15:15 Calcium 9.7 mg/dL (8.5-10.5) 11/10/24 15:15 Total Bilirubin 0.4 mg/dL (0.15-1.2) 11/10/24 15:15 AST 22 U/L (0-32) 11/10/24 15:15 ALT 41 U/L (0-33) H 11/10/24 15:15 Alkaline Phosphatase 104 U/L (35-105) 11/10/24 15:15 Creatine Kinase 47 U/L (26-192) 11/10/24 15:15 Troponin T Baseline 9 ng/L (0-10) 11/10/24 15:15 Troponin T 120 Minute 10.60 ng/L (0-10) H 11/10/24 17:40 Delta Troponin T 1.60 ABS# (0-10) 11/10/24 17:40 NT-Pro-B Natriuret Pep 110 pg/mL (0-125) 11/10/24 15:15 Total Protein 7.6 g/dL (6.6-8.7) 11/10/24 15:15 Albumin 4.0 g/dL (3.5-5.2) 11/10/24 15:15 Globulin 3.6 g/dL (1.3-4.6) 11/10/24 15:15 Urine Color Yellow (Yellow) 11/10/24 15:49 Urine Appearance Clear (CLEAR) 11/10/24 15:49 Urine pH 6.0 (5-7) 11/10/24 15:49 Ur Specific Westhoff 1.020 (1.005-1.030) 11/10/24 15:49 Urine Protein Negative (Negative) 11/10/24 15:49 Urine Glucose (UA) Negative (Normal) 11/10/24 15:49 Urine Ketones Negative (Negative) 11/10/24 15:49 Urine Blood Negative (Negative) 11/10/24 15:49 Urine Nitrate Negative (Negative) 11/10/24 15:49 Urine Bilirubin Negative (Negative) 11/10/24 15:49 Urine Urobilinogen 1.0 mg/dL (Negative) 11/10/24 15:49 Ur Leukocyte Esterase Negative (Negative) 11/10/24 15:49 Urine RBC 0-2 /hpf (0-2) 11/10/24 15:49 Urine WBC 0-5 /hpf (0-5) 11/10/24 15:49 Ur Squamous Epith Cells 0-5 /hpf (0-5) 11/10/24 15:49 Amorphous Sediment Not Reportable 11/10/24 15:49 Urine Bacteria None seen /hpf (NONE) 11/10/24 15:49 Hyaline Casts 0.81 /lpf 11/10/24 15:49 Influenza A (PCR) Negative (Negative) 11/10/24 15:25 Influenza Type B (PCR) Negative (Negative) 11/10/24 15:25 RSV (PCR) Negative (Negative) 11/10/24 15:25 SARS-CoV-2 (PCR) Negative (Negative) 11/10/24 15:25 Discharge Plan Discharge Patient Disposition: Home Clinical Impression: Non-cardiac chest pain, Medical non-compliance Condition: Stable Prescriptions: New clopidogrel [Plavix] 75 mg tablet 75 mg PO DAILY Qty: 30 0RF ranolazine 500 mg tablet extended release 12 hr 500 mg PO BID Qty: 60 0RF spironolactone 25 mg tablet 25 mg PO QAM Qty: 30 0RF simvastatin 20 mg tablet 20 mg PO QPM Qty: 30 0RF No Action clopidogrel 75 mg Tablet 75 mg PO DAILY spironolactone 25 mg Tablet 25 mg PO DAILY simvastatin 20 mg Tablet 20 mg PO QPM Iwona Cidradha Mixonegar Plus [phone] ch-ewh-ds-mg Tablet 1 tab PO DAILY ranolazine 500 mg Tablet Extended Release 12 Hr 500 mg PO Q12H Discharge Orders: Discharge ED (Routine); Ordered 11/10/24 Ordered By: Jacki Fuller Patient Instructions: Opioid Safety, Pain Management Activity Restrictions/Additional Instructions: Please follow with your primary provider or obtain an appointment with a primary provider in the next week or so. Take medications as instructed. Thank you for choosing [facility] for your healthcare needs today. Please realize this is an emergency room and that we are providing you with a medical screening exam and this may not be complete and all inclusive of all the testing and or work up that you may need to determine your ailment or severity of your illness. You have been screened and evaluated and felt safe for discharge. Health conditions do change or evolve sometimes and as such it is important that you follow up with your Primary Doctor to be re checked, 3-5 days is a general good time frame for follow up. You are always welcome to return to the ED for re assessment if your symptoms are worsening or you have new concerns Print Language: Kyrgyz Coding Level of Care Code ED Accounting Tutor for Chg Fwd Documented by User: Jacki Fuller MD 11/10/24 18:46 HPI - General Adult General: Chief complaint: Headache Stated complaint: hp,headache,weak, backpain Time Seen by Provider: 11/10/24 14:46 Related Data Home Medications ?Medication ?Instructions ?Recorded ?Confirmed cider 1 tab PO DAILY 06/17/24 11/10/24 epeesob-Ls-vyqlqbdftrhqfajh-tea 500 mg-100 mcg-300 mg-60 mg tab (Apple Cider Vinegar Plus) clopidogrel 75 mg tablet 75 mg PO DAILY 06/17/24 11/10/24 ranolazine 500 mg tablet,extended 500 mg PO Q12H 06/17/24 11/10/24 release,12 hr simvastatin 20 mg tablet 20 mg PO QPM 06/17/24 11/10/24 spironolactone 25 mg tablet 25 mg PO DAILY 06/17/24 11/10/24 Previous Rx's ?Medication ?Instructions ?Recorded clopidogrel 75 mg tablet (Plavix) 75 mg PO DAILY #30 tabs 11/10/24 ranolazine 500 mg tablet,extended 500 mg PO BID #60 tabs 11/10/24 release,12 hr simvastatin 20 mg tablet 20 mg PO QPM #30 tabs 11/10/24 spironolactone 25 mg tablet 25 mg PO QAM #30 tabs 11/10/24 Allergies Allergy/AdvReac Type Severity Reaction Status Date / Time codeine Allergy Unknown Verified 11/10/24 13:42 [facility] ED PFSH: Medical History Coronary artery disease Surgical History History of coronary angioplasty with insertion of stent Course Vital Signs: Vital signs: Vital Signs Temperature 98.1 F 11/10/24 13:37 Pulse Rate 81 11/10/24 18:57 Respiratory Rate 15 11/10/24 18:50 Blood Pressure 150/89 11/10/24 18:57 Pulse Oximetry 97 11/10/24 18:57 Oxygen Delivery Me thod Room Air 11/10/24 18:25 MDM - General Adult Medical Decision Making Patient care was transitioned me at shift change awaiting final troponin. This is negative. She basically has no positive findings in her lab workup. No leukocytosis. No anemia. No renal failure. Suggest she follows with her primary and start back on her medications as previously instructed. Assessment and plan: Noncardiac chest pain Headache Malaise Medical noncompliance ?I did provide her with prescriptions for her medications and instructions to take them as instructed and to follow-up with a primary provider as soon as possible. - Discharged home - Discussed findings and plan with patient. Answered any questions. - All laboratory values were reviewed and interpreted personally by myself, the ER physician - All imaging was reviewed and interpreted personally by myself, the ER physician. - Evaluation and treatment of this problem were appropriate in the emergency setting Lab Data 11/10/24 15:15 11/10/24 15:15 Radiology Impressions Chest X-Ray 11/10/24 14:47 IMPRESSION: No acute findings. Laboratory Results WBC 9.79 10^3/uL (3.29-11.43) 11/10/24 15:15 RBC 5.22 10^6/uL (3.85-5.65) 11/10/24 15:15 Hgb 15.80 g/dL (11.27-16.99) 11/10/24 15:15 Hct 47.9 % (36-47) H 11/10/24 15:15 MCV 91.8 fl (85-98) 11/10/24 15:15 MCH 30.3 pg (27-33) 11/10/24 15:15 MCHC 33.0 g/dL (30-55) 11/10/24 15:15 RDW 13.1 % (12.1-15.1) 11/10/24 15:15 Plt Count 217 10^3/cmm (157-399) 11/10/24 15:15 MPV 10.7 fL (7.4-10.4) H 11/10/24 15:15 Neut % (Auto) 60.7 % 11/10/24 15:15 Lymph % (Auto) 30.1 % 11/10/24 15:15 Winkler % (Auto) 7.3 % 11/10/24 15:15 Eos % (Auto) 0.9 % 11/10/24 15:15 Baso % (Auto) 0.8 % 11/10/24 15:15 Neut # (Auto) 5.94 10^3/uL (1.8-7.7) 11/10/24 15:15 Lymph # (Auto) 3.0 10^3/uL (0.8-4.8) 11/10/24 15:15 Winkler # (Auto) 0.7 10^3/uL (0.2-0.9) 11/10/24 15:15 Eos # (Auto) 0.1 10^3/uL (0.0-0.8) 11/10/24 15:15 Baso # (Auto) 0.1 10^3/uL (0.0-0.1) 11/10/24 15:15 Nucleated RBC % (auto) 0 % 11/10/24 15:15 Nucleated RBCs # 0.0 /100WBC 11/10/24 15:15 Sodium 136 mmol/L (136-145) 11/10/24 15:15 Potassium 3.9 mmol/L (3.5-5.1) 11/10/24 15:15 Chloride 100 mmol/L (98-107) 11/10/24 15:15 Carbon Dioxide 25 mmol/L (22-29) 11/10/24 15:15 Anion Gap 14.9 (5-19) 11/10/24 15:15 BUN 8 mg/dL (6-20) 11/10/24 15:15 Creatinine 0.7 mg/dL (0.5-0.9) 11/10/24 15:15 GFR Calculation 88.6 mL/min (90-130) L 11/10/24 15:15 Glucose 197 mg/dL (65-115) H 11/10/24 15:15 Calculated Osmolality 286 mOsm/kg (285-295) 11/10/24 15:15 Calcium 9.7 mg/dL (8.5-10.5) 11/10/24 15:15 Total Bilirubin 0.4 mg/dL (0.15-1.2) 11/10/24 15:15 AST 22 U/L (0-32) 11/10/24 15:15 ALT 41 U/L (0-33) H 11/10/24 15:15 Alkaline Phosphatase 104 U/L (35-105) 11/10/24 15:15 Creatine Kinase 47 U/L (26-192) 11/10/24 15:15 Troponin T Baseline 9 ng/L (0-10) 11/10/24 15:15 Troponin T 120 Minute 10.60 ng/L (0-10) H 11/10/24 17:40 Delta Troponin T 1.60 ABS# (0-10) 11/10/24 17:40 NT-Pro-B Natriuret Pep 110 pg/mL (0-125) 11/10/24 15:15 Total Protein 7.6 g/dL (6.6-8.7) 11/10/24 15:15 Albumin 4.0 g/dL (3.5-5.2) 11/10/24 15:15 Globulin 3.6 g/dL (1.3-4.6) 11/10/24 15:15 Urine Color Yellow (Yellow) 11/10/24 15:49 Urine Appearance Clear (CLEAR) 11/10/24 15:49 Urine pH 6.0 (5-7) 11/10/24 15:49 Ur Specific Westhoff 1.020 (1.005-1.030) 11/10/24 15:49 Urine Protein Negative (Negative) 11/10/24 15:49 Urine Glucose (UA) Negative (Normal) 11/10/24 15:49 Urine Ketones Negative (Negative) 11/10/24 15:49 Urine Blood Negative (Negative) 11/10/24 15:49 Urine Nitrate Negative (Negative) 11/10/24 15:49 Urine Bilirubin Negative (Negative) 11/10/24 15:49 Urine Urobilinogen 1.0 mg/dL (Negative) 11/10/24 15:49 Ur Leukocyte Esterase Negative (Negative) 11/10/24 15:49 Urine RBC 0-2 /hpf (0-2) 11/10/24 15:49 Urine WBC 0-5 /hpf (0-5) 11/10/24 15:49 Ur Squamous Epith Cells 0-5 /hpf (0-5) 11/10/24 15:49 Amorphous Sediment Not Reportable 11/10/24 15:49 Urine Bacteria None seen /hpf (NONE) 11/10/24 15:49 Hyaline Casts 0.81 /lpf 11/10/24 15:49 Influenza A (PCR) Negative (Negative) 11/10/24 15:25 Influenza Type B (PCR) Negative (Negative) 11/10/24 15:25 RSV (PCR) Negative (Negative) 11/10/24 15:25 SARS-CoV-2 (PCR) Negative (Negative) 11/10/24 15:25 All radiology interpretation(s) finalized by discharge Discharge Plan Discharge Patient Disposition: Home Clinical Impression: Non-cardiac chest pain, Medical non-compliance Condition: Stable Prescriptions: New clopidogrel [Plavix] 75 mg tablet 75 mg PO DAILY Qty: 30 0RF ranolazine 500 mg tablet extended release 12 hr 500 mg PO BID Qty: 60 0RF spironolactone 25 mg tablet 25 mg PO QAM Qty: 30 0RF simvastatin 20 mg tablet 20 mg PO QPM Qty: 30 0RF No Action clopidogrel 75 mg Tablet 75 mg PO DAILY spironolactone 25 mg Tablet 25 mg PO DAILY simvastatin 20 mg Tablet 20 mg PO QPM Apple Cider Vinegar Plus [phone] uo-zxc-cl-mg Tablet 1 tab PO DAILY ranolazine 500 mg Tablet Extended Release 12 Hr 500 mg PO Q12H Discharge Orders: Discharge ED (Routine); Ordered 11/10/24 Ordered By: Jacki Fuller Patient Instructions: Opioid Safety, Pain Management Activity Restrictions/Additional Instructions: Please follow with your primary provider or obtain an appointment with a primary provider in the next week or so. Take medications as instructed. Thank you for choosing [facility] for your healthcare needs today. Please realize this is an emergency room and that we are providing you with a medical screening exam and this may not be complete and all inclusive of all the testing and or work up that you may need to determine your ailment or severity of your illness. You have been screened and evaluated and felt safe for discharge. Health conditions do change or evolve sometimes and as such it is important that you follow up with your Primary Doctor to be re checked, 3-5 days is a general good time frame for follow up. You are always welcome to return to the ED for re assessment if your symptoms are worsening or you have new concerns Print Language: Kyrgyz Coding Level of Care Code ED Accounting Tutor for Imelda Wells
--- NOTE | 2024-11-10 14:50 | PC.PHAR ---
patient has pill bottles on phone verified with her on meds
[2024-11-10 15:30] LABS: Basophils # 0.1 10^3/uL (0.0-0.1); Basophils % 0.8 %; Eosinophils # 0.1 10^3/uL (0.0-0.8); Eosinophils % 0.9 %; Hematocrit 47.9 % (36-47); Lymphocytes % 30.1 %; Mean Corpuscular Hemoglobin 30.3 pg (27-33); Mean Corpuscular Volume 91.8 fl (85-98); Mean Platelet Volume 10.7 fL (7.4-10.4); Monocytes # 0.7 10^3/uL (0.2-0.9); Monocytes % 7.3 %; Neutrophils # 5.94 10^3/uL (1.8-7.7); Neutrophils % 60.7 %; Nucleated Red Blood Cells % 0 %; Platelet Count 217 10^3/cmm (157-399); Red Blood Count 5.22 10^6/uL (3.85-5.65); Red Cell Distribution Width 13.1 % (12.1-15.1); White Blood Count 9.79 10^3/uL (3.29-11.43)
[2024-11-10 15:53] LABS: Alanine Aminotransferase 41 U/L (0-33); Alkaline Phosphatase 104 U/L (35-105); Anion Gap 14.9 (5-19); Aspartate Amino Transferase 22 U/L (0-32); Blood Urea Nitrogen 8 mg/dL (6-20); Calcium 9.7 mg/dL (8.5-10.5); Carbon Dioxide 25 mmol/L (22-29); Chloride 100 mmol/L (98-107); Creatine Phosphokinase 47 U/L (26-192); Creatinine Clr Calc Pharmacy 89.0308; Globulin 3.6 g/dL (1.3-4.6); Glomerular Filtration Rate 88.6 mL/min (90-130); Glucose 197 mg/dL (65-115); NT Pro B Type Natriuretic Pept 110 pg/mL (0-125); Osmolality Calculated 286 mOsm/kg (285-295); Potassium 3.9 mmol/L (3.5-5.1); Sodium 136 mmol/L (136-145); Total Bilirubin 0.4 mg/dL (0.15-1.2); Total Protein 7.6 g/dL (6.6-8.7)
[2024-11-10 15:58] LABS: Bilirubin Urine Negative (Negative); Blood Urine Negative (Negative); Glucose Urine UA Negative (Normal); Ketones Urine Negative (Negative); Leukocyte Esterase Urine Negative (Negative); Nitrate Urine Negative (Negative); Protein Urine Negative (Negative); Urine Appearance Clear (CLEAR); Urine Color Yellow (Yellow)
[2024-11-10 16:01] LABS: Add Urine Microscopic? YES; Bacteria Urine None Seen /hpf; Hyaline Casts Urine 0.81 /lpf; RBC Urine 0-2 /hpf (0-2); Squamous Epithelial Cell Urine 0-5 /hpf (0-5); WBC Urine 0-5 /hpf (0-5)
[2024-11-10 16:12] LABS: Influenza A NEGATIVE (Negative); Influenza B NEGATIVE (Negative); Respiratory Syncytial Virus Ce NEGATIVE (Negative); SARS-CoV-2 PCR NEGATIVE (Negative)
[2024-11-10 16:36] LABS: Troponin(5th) Baseline 9 ng/L (0-10)
--- NOTE | 2024-11-10 17:29 | ECG_ITS ---
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1975 Requested By: Hair Rouse Order Number: [id number] Reading MD: LEXIS SANCHEZ Measurements Intervals [place] Rate: 76 P: -10 [place]: 133 QRS: 34 QRSD: 73 T: 222 QT: 389 QTc: 440 Interpretive Statements SINUS RHYTHM ST DEVIATION AND MODERATE T-WAVE ABNORMALITY, CONSIDER LATERAL ISCHEMIA [-0.1+ mV T-WAVE IN I/aVL/V5/V6] ST DEVIATION AND MODERATE T-WAVE ABNORMALITY, CONSIDER INFERIOR ISCHEMIA [-0.1+ mV T-WAVE IN II/aVF] Compared to ECG 11/10/2024 15:07:52 No significant changes Electronically Signed On 11-10-2024 22:18:10 CDT by LEXIS SANCHEZ [email or web address]
[2024-11-10] MEDS: acetaminophen 1,000 MG/100 ML PIGGYBACK 400 MG IV (18:20)
== END 2024-11-10 18:55 | disposition home or self-care (01) ==
PROVIDERS: Family Medicine; Emergency Provider Emergency Medicine
DX: R07.89 Other chest pain (principal); Z91.199 Patient's noncompliance with other medical treatment and regimen due to unspecified reason; Z11.52 Encounter for screening for COVID-19; I25.10 Atherosclerotic heart disease of native coronary artery without angina pectoris
CPT/HCPCS: 36415; 71045; 80053; 81001; 82550; 83880; 84484; 85025; 87637; 93005; 96365; 99285; J0131